=== PATIENT | female | born 1990 | race Hispanic/Latino ===

== ENCOUNTER 2018-10-05 10:59 | Emergency (ER) | payer SELFPAY ==
--- NOTE | 2018-10-05 11:18 | EDPHYS ---
Physician Documentation [facility] Name: Anna Banks Age: 28 yrs Sex: Female : 1990 Arrival Date: 10/05/2018 Time: 11:02 Bed 12 Private MD: ED Physician Avis Lemus HPI: 10/05 11:15 This 28 yrs old Female presents to ER via Ambulatory with complaints of Fever, ma2 Cough, Headache. 11:15 Onset: The symptoms/episode began/occurred gradually, 2 day(s) ago. Associated signs ma2 and symptoms: Pertinent positives: cough, Pertinent negatives: abdominal pain, cough. Severity of symptoms: At their worst the symptoms were mild in the emergency department the symptoms have improved. The patient has not experienced similar symptoms in the past. 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 - Social history:: Patient/guardian denies using Smoking status: . - Family history:: not pertinent. - Ebola Screening: : Patient negative for fever greater than or equal to 101.5 degrees Fahrenheit, and additional compatible Ebola Virus Disease symptoms Patient denies exposure to infectious person Patient denies travel to an Ebola-affected area in the 21 days before illness onset. ROS: 11:15 Constitutional: Negative for fever, chills, and weight loss, Cardiovascular: Negative ma2 for chest pain, palpitations, and edema, Respiratory: Negative for shortness of breath, cough, wheezing, and pleuritic chest pain. 11:15 ENT: Positive for nasal discharge, sore throat, Negative for hearing loss. 11:15 All other systems are negative. Exam: 11:15 Constitutional: This is a well developed, well nourished patient who is awake, alert, ma2 and in no acute distress. Chest/axilla: Normal chest wall appearance and motion. Nontender with no deformity. No lesions are appreciated. Cardiovascular: Regular rate and rhythm with a normal S1 and S2. No gallops, murmurs, or rubs. Normal PMI, no JVD. No pulse deficits. Respiratory: Lungs have equal breath sounds bilaterally, clear to auscultation and percussion. No rales, rhonchi or wheezes noted. No increased work of breathing, no retractions or nasal flaring. Abdomen/GI: Soft, non-tender, with normal bowel sounds. No distension or tympany. No guarding or rebound. No evidence of tenderness throughout. 11:15 MS/ Extremity: Pulses equal, no cyanosis. Neurovascular intact. Full, normal range of motion. Neuro: Awake and alert, GCS 15, oriented to person, place, time, and situation. Cranial nerves II-XII grossly intact. Motor strength 5/5 in all extremities. Sensory grossly intact. Cerebellar exam normal. Normal gait. 11:15 ENT: Posterior pharynx: Airway: normal, Tonsils: bilaterally enlarged, no exudate, no ulcerations, exudate, is not appreciated, peritonsillar mass, is not appreciated, pooling of secretions, is not appreciated. Vital Signs: 11:08 BP 130 / 74; Pulse 108; Resp 18; Temp 100.8(O); Pulse Ox 96% on R/A; Weight 97.98 kg; hj Height 5 ft. 4 in. (162.56 cm); Pain 5/10; 11:08 Body Mass Index 37.08 (97.98 kg, 162.56 cm) MDM: 11:12 Patient medically screened. [facility] 11:15 Differential diagnosis: viral Infection, URI, bronchitis. Data reviewed: vital signs, ca2 nurses notes. Counseling: I had a detailed discussion with the patient and/or guardian regarding: the historical points, exam findings, and any diagnostic results supporting the discharge/admit diagnosis, the presence of at least one elevated blood pressure reading (>120/80) during this emergency department visit. Response to treatment: the patient's symptoms have markedly improved after treatment. Administered Medications: 11:18 Drug: TORadol 60 mg Route: IM; Site: left deltoid; 11:39 Follow up: Response: No adverse reaction; Pain is decreased Disposition: 10/05/18 11:18 Discharged to Home. Impression: Acute laryngopharyngitis. - Condition is Stable. - Discharge Instructions: Pharyngitis. - Prescriptions for Tylenol- Codeine #3 300-30 mg Oral Tablet - take 2 tablet by ORAL route every 6 hours As needed; 30 tablet. Zithromax Z- Peter 250 mg Oral Tablet - take 1 tablet by ORAL route as directed for 5 days Day 1 - take two (2) tablets one time. Day 2, 3, 4 , 5 take one (1) tablet once daily.; 6 tablet. - Medication Reconciliation Form, Thank You Letter, Antibiotic Education, Prescription Opioid Use form. - Follow up: Private Physician; When: Tomorrow; Reason: If symptoms return. Signatures: Luca Badillo RN RN hj Alzahri, Mohammad, MD MD ma2 Corrections: (The following items were deleted from the chart) 11:41 11:18 10/05/2018 11:18 Discharged to Home. Impression: Acute laryngopharyngitis. hj Condition is Stable. Forms are Medication Reconciliation Form, Thank You Letter, Antibiotic Education, Prescription Opioid Use. Follow up: Private Physician; When: Tomorrow; Reason: If symptoms return. ma2
--- NOTE | 2018-10-05 11:18 | ER ---
Nurse's Notes [facility] Name: Anna Banks Age: 28 yrs Sex: Female : 1990 Arrival Date: 10/05/2018 Time: 11:02 Bed 12 Private MD: Diagnosis: Acute laryngopharyngitis Presentation: 10/05 11:06 Presenting complaint: Patient states: last night, i started coughing a lot, sore throat hj and fever, took TheraFlu but not helping with the cough but it helped with my throat;. Transition of care: patient was not received from another setting of care. Onset of symptoms was October 05, 2018. Risk Assessment: Do you want to hurt yourself or someone else? Patient reports no desire to harm self or others. Initial Sepsis Screen: Does the patient meet any 2 criteria? No. Patient's initial sepsis screen is negative. Does the patient have a suspected source of infection? No. Patient's initial sepsis screen is negative. Care prior to arrival: None. 11:06 Method Of Arrival: Ambulatory 11:06 Acuity: SENTHIL 4 Triage Assessment: 11:40 Headache History: Denies prior headaches. General: Appears in no apparent distress. hj uncomfortable, Behavior is calm, cooperative, appropriate for age. Pain: Complains of pain in thraot. Neuro: Level of Consciousness is awake, alert, obeys commands. 11:40 Pain: Pain Also complains of no other associated symptoms. 11:40 Pain: Pain began 1 day ago. 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 - Social history:: Patient/guardian denies using Smoking status: . - Family history:: not pertinent. - Ebola Screening: : Patient negative for fever greater than or equal to 101.5 degrees Fahrenheit, and additional compatible Ebola Virus Disease symptoms Patient denies exposure to infectious person Patient denies travel to an Ebola-affected area in the 21 days before illness onset. Screenin:40 Abuse screen: Denies threats or abuse. Denies injuries from another. Nutritional hj screening: No deficits noted. Tuberculosis screening: No symptoms or risk factors identified. Fall Risk None identified. Vital Signs: 11:08 BP 130 / 74; Pulse 108; Resp 18; Temp 100.8(O); Pulse Ox 96% on R/A; Weight 97.98 kg; hj Height 5 ft. 4 in. (162.56 cm); Pain 5/10; 11:08 Body Mass Index 37.08 (97.98 kg, 162.56 cm) hj ED Course: 11:02 Patient arrived in ED. rg4 11:07 Triage completed. hj 11:08 Arm band placed on left wrist. hj 11:12 Avis Lemus MD is Attending Physician. ma2 11:39 Luca Badillo RN is Primary Nurse. hj 11:41 Patient has correct armband on for positive identification. Bed in low position. Call hj light in reach. Side rails up X 1. 11:41 No provider procedures requiring assistance completed. Patient did not have IV access hj during this emergency room visit. Administered Medications: 11:18 Drug: TORadol 60 mg Route: IM; Site: left deltoid; hj 11:39 Follow up: Response: No adverse reaction; Pain is decreased hj Outcome: 11:18 Discharge ordered by . ma2 11:41 Discharged to home ambulatory. hj 11:41 Condition: stable 11:41 Discharge instructions given to patient, Instructed on discharge instructions, follow up and referral plans. medication usage, Demonstrated understanding of instructions, follow-up care, medications, Prescriptions given X 2. 11:41 Patient left the ED. hj Signatures: Luca Badillo RN RN hj Garcia, Rubi 4 Avis Lemus MD MD wyZhanna Corrections: (The following items were deleted from the chart) 11:11 11:08 Pulse 108bpm; Resp 18bpm; Pulse Ox 96% RA; Temp 100.8F Oral; 97.98 kg; Height 5 hj ft. 4 in.; BMI: 37.0; Pain 5/10; hj
[2018-10-05] MEDS ORDERED: KETOROLAC 30 MG/ML INJ ONE (11:47)
[2018-10-05 11:58] VITALS: BP 130/74; TEMP 100.8; O2SAT 96
== END 2018-10-05 11:41 | disposition home or self-care (01) ==
LOC: ER 10:59
DX: J06.0 Acute laryngopharyngitis (principal)
CPT/HCPCS: 96372; 99283

== ENCOUNTER 2018-10-06 18:24 | Emergency (ER) | payer SELFPAY ==
[2018-10-06] MEDS ORDERED: ALBUTEROL 2.5 MG/3 ML NEB SOL ONE (19:06)
--- NOTE | 2018-10-06 19:42 | EDPHYS ---
Physician Documentation [facility] Name: Anna Banks Age: 28 yrs Sex: Female : 1990 Arrival Date: 10/06/2018 Time: 18:26 Bed 30 Private MD: ED Physician Sergio Navarro HPI: 10/06 19:22 This 28 yrs old Female presents to ER via Ambulatory with complaints of Cough, snw Headache, Urinary Problem. 19:22 The patient or guardian reports cough, described as moderate, with no sputum. Onset: snw The symptoms/episode began/occurred seen in ED yesterday and given Rx for Z-max. Severity of symptoms: At their worst the symptoms were moderate. Associated signs and symptoms: Pertinent positives: cough, headache, and frequency. It is unknown whether or not the patient has had similar symptoms in the past. The patient has been recently seen by a physician: The patient has been recently seen at the [facility] Emergency Department, yesterday, for similar complaints. 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 - Social history:: Smoking status: Patient/guardian denies using tobacco. - Ebola Screening: : No symptoms or risks identified at this time. ROS: 19:21 Constitutional: Negative for fever, chills, and weight loss, Eyes: Negative for injury, snw pain, redness, and discharge, ENT: Negative for injury, pain, and discharge, Neck: Negative for injury, pain, and swelling, Cardiovascular: Negative for chest pain, palpitations, and edema. 19:21 Abdomen/GI: Negative for abdominal pain, nausea, vomiting, diarrhea, and constipation, Back: Negative for injury and pain, MS/Extremity: Negative for injury and deformity, Skin: Negative for injury, rash, and discoloration, Neuro: Negative for headache, weakness, numbness, tingling, and seizure. 19:21 Respiratory: Positive for cough, with no reported sputum, wheezing. 19:21 : Positive for urinary frequency, small amounts. Exam: 18:49 Constitutional: This is a well developed, well nourished patient who is awake, alert, snw and in no acute distress. Head/Face: Normocephalic, atraumatic. Eyes: Pupils equal round and reactive to light, extra-ocular motions intact. Lids and lashes normal. Conjunctiva and sclera are non-icteric and not injected. Cornea within normal limits. Periorbital areas with no swelling, redness, or edema. ENT: Nares patent. No nasal discharge, no septal abnormalities noted. Tympanic membranes are normal and external auditory canals are clear. Oropharynx with no redness, swelling, or masses, exudates, or evidence of obstruction, uvula midline. Mucous membranes moist. Neck: Trachea midline, no thyromegaly or masses palpated, and no cervical lymphadenopathy. Supple, full range of motion without nuchal rigidity, or vertebral point tenderness. No Meningismus. Chest/axilla: Normal chest wall appearance and motion. Nontender with no deformity. No lesions are appreciated. Cardiovascular: Regular rate and rhythm with a normal S1 and S2. No gallops, murmurs, or rubs. Normal PMI, no JVD. No pulse deficits. Abdomen/GI: Soft, non-tender, with normal bowel sounds. No distension or tympany. No guarding or rebound. No evidence of tenderness throughout. Back: No spinal tenderness. No costovertebral tenderness. Full range of motion. Skin: Warm, dry with normal turgor. Normal color with no rashes, no lesions, and no evidence of cellulitis. MS/ Extremity: Pulses equal, no cyanosis. Neurovascular intact. Full, normal range of motion. Neuro: Awake and alert, GCS 15, oriented to person, place, time, and situation. Cranial nerves II-XII grossly intact. Motor strength 5/5 in all extremities. Sensory grossly intact. Cerebellar exam normal. Normal gait. Psych: Awake, alert, with orientation to person, place and time. Behavior, mood, and affect are within normal limits. 18:49 Respiratory: the patient does not display signs of respiratory distress, Respirations: normal, Breath sounds: wheezing: expiratory bronchitic cough. Vital Signs: 18:33 BP 135 / 91; Pulse 84; Resp 16; Temp 97.6; Pulse Ox 98% on R/A; Weight 117.93 kg; la1 Height 5 ft. 4 in. (162.56 cm); 19:54 BP 129 / 89; Pulse 80; Resp 18; Pulse Ox 100% on R/A; Pain 0/10; mg2 18:33 Body Mass Index 44.63 (117.93 kg, 162.56 cm) la1 MDM: 18:46 Patient medically screened. snw 19:42 Data reviewed: vital signs, nurses notes. Data interpreted: Pulse oximetry: on room air snw is 98 %. Interpretation: normal. Counseling: I had a detailed discussion with the patient and/or guardian regarding: the historical points, exam findings, and any diagnostic results supporting the discharge/admit diagnosis, lab results, the need for outpatient follow up, to return to the emergency department if symptoms worsen or persist or if there are any questions or concerns that arise at home. Response to treatment: the patient's symptoms have markedly improved after treatment. Special discussion: Based on the history and exam findings, there is no indication for further emergent testing or inpatient evaluation. I discussed with the patient/guardian the need to see the primary care provider for further evaluation of the symptoms. 10/06 18:47 Order name: Urine Dipstick--Ancillary (enter results); Complete Time: 19:52 ar5 10/06 18:47 Order name: Urine --Ancillary (enter results); Complete Time: 19:52 ar5 Administered Medications: 19:00 Drug: Albuterol 2.5 mg Route: Inhalation; mg2 19:23 Follow up: Response: No adverse reaction; Marked relief of symptoms mg2 Disposition: 10/07 07:00 Co-signature as Attending Physician, Sergio Navarro MD. rn Disposition: 10/06/18 19:42 Discharged to Home. Impression: Bronchitis, not specified as acute or chronic, Dysuria. - Condition is Stable. - Discharge Instructions: Acute Bronchitis, Adult, Dysuria, Hypertension, How to Use an Inhaler, How to Take a Sitz Bath, Cool Mist Vaporizer, Cough, Adult. - Prescriptions for Pyridium 200 mg Oral Tablet - take 1 tablet by ORAL route every 8 hours for 3 days; 6 tablet. Albuterol Sulfate 90 mcg/actuation - inhale 1-2 puff by INHALATION route every 4-6 hours; 1 Inhaler. - Medication Reconciliation Form, Thank You Letter, Antibiotic Education, Prescription Opioid Use, Work release form form. - Follow up: Private Physician; When: 2 - 3 days; Reason: Recheck today's complaints, Continuance of care, Re-evaluation by your physician. Follow up: Emergency Department; When: As needed; Reason: Worsening of condition. Signatures: Dispatcher [employer] EDDora Mcclure, MAIDA-C RESIDENTIAL PROGRAM DIRECTOR-Csnw Sergio Navarro MD MD rn Attema, Lee, RN RN la1 Brandon Espino RN RN mg2 Corrections: (The following items were deleted from the chart) 10/06 19:55 19:42 10/06/2018 19:42 Discharged to Home. Impression: Bronchitis, not specified as mg2 acute or chronic; Dysuria. Condition is Stable. Discharge Instructions: Dysuria, How to Take a Sitz Bath, Cough, Adult. Prescriptions for Pyridium 200 mg Oral Tablet - take 1 tablet by ORAL route every 8 hours for 3 days; 6 tablet, Albuterol Sulfate 90 mcg/actuation - inhale 1-2 puff by INHALATION route every 4-6 hours; 1 Inhaler. and Forms are Medication Reconciliation Form, Thank You Letter, Antibiotic Education, Prescription Opioid Use. Follow up: Private Physician; When: 2 - 3 days; Reason: Recheck today's complaints, Continuance of care, Re-evaluation by your physician. Follow up: Emergency Department; When: As needed; Reason: Worsening of condition. snw
--- NOTE | 2018-10-06 19:42 | ER ---
Nurse's Notes [facility] Name: Anna Banks Age: 28 yrs Sex: Female : 1990 Arrival Date: 10/06/2018 Time: 18:26 Bed 30 Private MD: Diagnosis: Bronchitis, not specified as acute or chronic;Dysuria Presentation: 10/06 18:31 Presenting complaint: Patient states: I was seen here yesterday and the fever went away la1 but I am having vaginal irritation and urinary frequency. Transition of care: patient was not received from another setting of care. Onset of symptoms was October 06, 2018. Risk Assessment: Do you want to hurt yourself or someone else? Patient reports no desire to harm self or others. Initial Sepsis Screen: Does the patient meet any 2 criteria? No. Patient's initial sepsis screen is negative. Does the patient have a suspected source of infection? No. Patient's initial sepsis screen is negative. Care prior to arrival: None. 18:31 Method Of Arrival: Ambulatory la1 18:31 Acuity: SENTHIL 4 la1 Triage Assessment: 18:51 Headache History: The patient has had previous headaches and this one is similar to mg2 previous episodes. General: Appears in no apparent distress. comfortable. General: Behavior is calm, cooperative. Pain: Also complains of no other associated symptoms. 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 - Social history:: Smoking status: Patient/guardian denies using tobacco. - Ebola Screening: : No symptoms or risks identified at this time. Screenin:51 Abuse screen: Denies threats or abuse. Denies injuries from another. Nutritional mg2 screening: No deficits noted. Tuberculosis screening: No symptoms or risk factors identified. Fall Risk None identified. Assessment: 18:48 General: Appears in no apparent distress. comfortable, Behavior is calm, cooperative. mg2 Pain: Complains of pain in head Pain does not radiate. Pain currently is 2 out of 10 on a pain scale. Quality of pain is described as aching, Pain began gradually, 1 day ago. Neuro: Level of Consciousness is awake, alert, obeys commands, Oriented to person, place, time, situation, Reports headache. Cardiovascular: Capillary refill < 3 seconds Patient's skin is warm and dry. Respiratory: Reports cough that is Airway is patent Respiratory effort is even, unlabored, Respiratory pattern is regular, symmetrical, Breath sounds are clear in mediastinum, right upper lobe, left upper lobe, right middle lobe, left lower lobe, right lower lobe, left posterior upper lobe, right posterior upper lobe, left posterior lower lobe, right posterior middle lobe and right posterior lower lobe. GI: No signs and/or symptoms were reported involving the gastrointestinal system. GI:. : Urine is clear, Reports burning with urination. EENT: No signs and/or symptoms were reported regarding the EENT system. Derm: Skin is intact, is healthy with good turgor, Skin is pink, warm \T\ dry. normal. Musculoskeletal: Circulation, motion, and sensation intact. Capillary refill < 3 seconds. 19:54 Reassessment: Patient appears in no apparent distress at this time. Patient states mg2 feeling better. Vital Signs: 18:33 BP 135 / 91; Pulse 84; Resp 16; Temp 97.6; Pulse Ox 98% on R/A; Weight 117.93 kg; la1 Height 5 ft. 4 in. (162.56 cm); 19:54 BP 129 / 89; Pulse 80; Resp 18; Pulse Ox 100% on R/A; Pain 0/10; mg2 18:33 Body Mass Index 44.63 (117.93 kg, 162.56 cm) la1 ED Course: 18:26 Patient arrived in ED. as 18:32 Triage completed. la1 18:33 Arm band placed on left wrist. la1 18:34 Brandon Espino, ANURADHA is Primary Nurse. mg2 18:43 Dora Ferrell FNP-C is [facility]. snw 18:43 Sergio Navarro MD is Attending Physician. snw 18:51 No provider procedures requiring assistance completed. Patient did not have IV access mg2 during this emergency room visit. 18:52 Patient has correct armband on for positive identification. mg2 Administered Medications: 19:00 Drug: Albuterol 2.5 mg Route: Inhalation; mg2 19:23 Follow up: Response: No adverse reaction; Marked relief of symptoms mg2 Outcome: 19:42 Discharge ordered by MD. snw 19:54 Discharged to home ambulatory. mg2 19:54 Condition: stable 19:54 Discharge instructions given to patient, Instructed on discharge instructions, follow up and referral plans. medication usage, Demonstrated understanding of instructions, follow-up care, medications, Prescriptions given X 2. 19:55 Patient left the ED. mg2 Signatures: Dora Ferrell, SALES ATTENDANT BUILDING MATERIALS-C SALES ATTENDANT BUILDING MATERIALS-Csnw Bhavani Hein Lee, RN RN la1 Brandon Espino RN RN mg2 Corrections: (The following items were deleted from the chart) 19:01 18:48 Respiratory: Airway is patent Respiratory effort is even, unlabored, Respiratory mg2 pattern is regular, symmetrical, mg2
[2018-10-06 19:51] LABS: Urine Blood NEGATIVE (NEG); Urine Glucose NEGATIVE (NEG); Urine Protein 1+ (NEG); Urine Specific Gravity >1.030 (1.005-1.030); Urine pH 5.5 (5.0-7.0)
[2018-10-06 19:58] VITALS: TEMP 97.6
[2018-10-06 20:00] VITALS: BP 129/89; O2SAT 100
== END 2018-10-06 19:55 | disposition home or self-care (01) ==
LOC: ER 18:24
DX: J40 Bronchitis, not specified as acute or chronic (principal); R30.0 Dysuria; I10 Essential (primary) hypertension
CPT/HCPCS: 81003; 81025; 99284

== ENCOUNTER 2019-12-14 18:42 | Emergency (ER) | payer SELFPAY ==
--- NOTE | 2019-12-14 20:12 | ER ---
Nurse's Notes [facility] Name: Anna Banks Age: 29 yrs Sex: Female : 1990 Arrival Date: 12/14/2019 Time: 18:48 Bed DIS2 Private MD: Diagnosis: Nausea;Malaise and fatigue;Anosmia Presentation: 12/13 20:48 Chief complaint: Patient states: No taste and no smell, headache and nausea for a few days. Coronavirus screen: Surgical mask placed on patient. Patient moved to private room, placed in contact and droplet isolation with eye protection until further assessment. Patient denies a cough. Patient denies shortness of breath or difficulty breathing. Patient denies measured and/or subjective temperature greater than 100.4F prior to today's visit. Patient denies travel on a cruise ship or to a country the [facility] currently lists as an affected area. Patient denies contact with known and/or suspected case of COVID-19. Ebola Screen: No symptoms or risks identified at this time. Initial Sepsis Screen: Does the patient meet any 2 criteria? No. Patient's initial sepsis screen is negative. Does the patient have a suspected source of infection? No. Patient's initial sepsis screen is negative. Risk Assessment: Do you want to hurt yourself or someone else? Patient reports no desire to harm self or others. Onset of symptoms is unknown. 20:48 Method Of Arrival: Ambulatory 20:48 Acuity: SENTHIL 4 Historical: - Allergies: 20:49 No Known Allergies; - Home Meds: 20:49 None [Active]; - PMHx: 20:49 Hypertension; - PSHx: 20:49 Tubal ligation; - Immunization history:: Adult Immunizations unknown, Flu vaccine is not up to date. - Social history:: Smoking status: Patient denies any tobacco usage or history of. Patient uses alcohol, occasionally. Screenin:50 Abuse screen: Denies threats or abuse. Nutritional screening: No deficits noted. Tuberculosis screening: No symptoms or risk factors identified. Fall Risk None identified. Assessment: 19:45 General: Appears in no apparent distress. Behavior is calm, cooperative, appropriate for age. Pain: Denies pain. Neuro: Level of Consciousness is awake, alert, obeys commands, Oriented to person, place, time, situation, Appropriate for age Reports headache weakness. Neuro: Reports. Cardiovascular: Capillary refill < 3 seconds Patient's skin is warm and dry. Respiratory: Airway is patent Respiratory effort is even, unlabored. GI: Reports nausea. EENT: Reports NO taste and no smell. Derm: Skin is intact, is healthy with good turgor. Vital Signs: 20:48 Weight 113.4 kg; Height 5 ft. 4 in. (162.56 cm); 20:48 Body Mass Index 42.91 (113.40 kg, 162.56 cm) ED Course: 18:48 Patient arrived in ED. mr 19:08 Anna Phelps FNP-C is [facility]. kb 19:08 Sergio Navarro MD is Attending Physician. kb 19:26 Patient's name was called from ER lobby. No response. lp1 19:40 [facility]hel[facility]C is [facility]. kb 19:40 Sergio Navarro MD is Attending Physician. kb 20:37 Airam Solomon, RN is Primary Nurse. 20:49 Triage completed. 20:50 Patient has correct armband on for positive identification. Bed in low position. Call light in reach. 20:50 No provider procedures requiring assistance completed. Patient did not have IV access during this emergency room visit. 20:51 Patient notified of wait time. Administered Medications: No medications were administered Outcome: 20:11 Discharge ordered by MD. kb 20:50 Discharged to home ambulatory. ah 20:50 Condition: good 20:50 Discharge instructions given to patient, Instructed on discharge instructions, follow up and referral plans. Demonstrated understanding of instructions, follow-up care. 20:58 Prescriptions given X 1. 20:58 Patient left the ED. Addendum: 12/18/2019 17:42 Addendum: COVID-19 Result: Positive result giiven to ED physician to notify pt. h b Physician: Naseem Meyer MD Physician was able to contact pt and pt was notified of positive COVID-19 swab result. Physician answered pt questions. Signatures: Anna Phelps FNP-C FNP-Cassandra Marisol Tobias mr Jie Maya RN RN lp1 Kassandra Eaton RN RN Airam Solomon RN RN Corrections: (The following items were deleted from the chart) 18:30 17:42 Addendum: COVID-19 Result: Positive result giiven to ED physician to notify pt. lashawn Physician: Naseem hardin
--- NOTE | 2019-12-14 20:12 | EDPHYS ---
Physician Documentation [facility] Name: Anna Banks Age: 29 yrs Sex: Female : 1990 Arrival Date: 12/14/2019 Time: 18:48 Bed DIS2 Private MD: ED Physician Sergio Navarro HPI: 12/13 19:53 This 29 yrs old Female presents to ER via Unassigned with complaints of Nausea.kb 19:53 The patient presents to the emergency department with nausea. Onset: The kb symptoms/episode began/occurred last night. Possible causes: unknown. The symptoms are aggravated by nothing. The symptoms are alleviated by nothing. Associated signs and symptoms: Pertinent positives: nausea. Severity of symptoms: At their worst the symptoms were mild in the emergency department the symptoms are unchanged. The patient has not experienced similar symptoms in the past. The patient has not recently seen a physician. Pt reports nausea, no smell or taste, malaise, weakness since last night. Historical: - Allergies: 20:49 No Known Allergies; - Home Meds: 20:49 None [Active]; - PMHx: 20:49 Hypertension; - PSHx: 20:49 Tubal ligation; - Immunization history:: Adult Immunizations unknown, Flu vaccine is not up to date. - Social history:: Smoking status: Patient denies any tobacco usage or history of. Patient uses alcohol, occasionally. ROS: 19:51 Cardiovascular: Negative for chest pain, palpitations, and edema, Respiratory: Negative kb for shortness of breath, cough, wheezing, and pleuritic chest pain, Back: Negative for injury and pain, MS/Extremity: Negative for injury and deformity, Skin: Negative for injury, rash, and discoloration, Neuro: Negative for headache, weakness, numbness, tingling, and seizure. 19:51 Constitutional: Positive for malaise. 19:51 Abdomen/GI: Positive for nausea, no smell/taste. Exam: 19:53 Constitutional: This is a well developed, well nourished patient who is awake, alert, kb and in no acute distress. Head/Face: Normocephalic, atraumatic. Chest/axilla: Normal chest wall appearance and motion. Nontender with no deformity. No lesions are appreciated. Cardiovascular: Regular rate and rhythm with a normal S1 and S2. No gallops, murmurs, or rubs. Normal PMI, no JVD. No pulse deficits. Respiratory: Lungs have equal breath sounds bilaterally, clear to auscultation and percussion. No rales, rhonchi or wheezes noted. No increased work of breathing, no retractions or nasal flaring. Abdomen/GI: Soft, non-tender, with normal bowel sounds. No distension or tympany. No guarding or rebound. No evidence of tenderness throughout. Skin: Warm, dry with normal turgor. Normal color with no rashes, no lesions, and no evidence of cellulitis. MS/ Extremity: Pulses equal, no cyanosis. Neurovascular intact. Full, normal range of motion. Neuro: Awake and alert, GCS 15, oriented to person, place, time, and situation. Cranial nerves II-XII grossly intact. Motor strength 5/5 in all extremities. Sensory grossly intact. Cerebellar exam normal. Normal gait. Vital Signs: 20:48 Weight 113.4 kg; Height 5 ft. 4 in. (162.56 cm); ah 20:48 Body Mass Index 42.91 (113.40 kg, 162.56 cm) MDM: 19:40 Patient medically screened. kb 19:50 Data reviewed: vital signs, nurses notes. Data interpreted: Pulse oximetry: on room air kb is 100 %. Interpretation: normal. Counseling: I had a detailed discussion with the patient and/or guardian regarding: the historical points, exam findings, and any diagnostic results supporting the discharge/admit diagnosis, the need for outpatient follow up, a family practitioner, to return to the emergency department if symptoms worsen or persist or if there are any questions or concerns that arise at home. 12/13 19:41 Order name: [id number] Administered Medications: No medications were administered Disposition: 21:05 Co-signature as Attending Physician, Sergio Navarro MD. rn Disposition: 12/14/19 20:11 Discharged to Home. Impression: Nausea, Malaise and fatigue, Anosmia. - Condition is Stable. - Discharge Instructions: Weakness, [id number], Nausea, Adult, [id number]. - Prescriptions for Zofran 4 mg Oral Tablet - take 1 tablet by ORAL route every 6 hours As needed; 20 tablet. - Medication Reconciliation Form, Thank You Letter, Antibiotic Education, Prescription Opioid Use, Work release form form. - Follow up: Private Physician; When: 2 - 3 days; Reason: Recheck today's complaints, Continuance of care, Re-evaluation by your physician. Follow up: Emergency Department; When: As needed; Reason: Worsening of condition. Signatures: Dispatcher [employer] EDMS Anna Phelps, CAR BODY MECHANIC-C CAR BODY MECHANIC-Ckb eSrgio Navarro MD MD rn Harris, Amy, RN RN ah Corrections: (The following items were deleted from the chart) 20:12 20:11 12/14/2019 20:11 Discharged to Home. Impression: Nausea; Malaise and fatigue. kb Condition is Stable. Forms are Medication Reconciliation Form, Thank You Letter, Antibiotic Education, Prescription Opioid Use. Follow up: Private Physician; When: 2 - 3 days; Reason: Recheck today's complaints, Continuance of care, Re-evaluation by your physician. Follow up: Emergency Department; When: As needed; Reason: Worsening of condition. kb 20:58 20:12 12/14/2019 20:11 Discharged to Home. Impression: Nausea; Malaise and fatigue; Anosmia. Condition is Stable. Forms are Medication Reconciliation Form, Thank You Letter, Antibiotic Education, Prescription Opioid Use. Follow up: Private Physician; When: 2 - 3 days; Reason: Recheck today's complaints, Continuance of care, Re-evaluation by your physician. Follow up: Emergency Department; When: As needed; Reason: Worsening of condition. kb
== END 2019-12-14 20:58 | disposition home or self-care (01) ==
LOC: ER 18:42
DX: U07.1 COVID-19 (principal); R43.0 Anosmia; R53.81 Other malaise; R53.83 Other fatigue; I10 Essential (primary) hypertension
CPT/HCPCS: 99281; U0001

== ENCOUNTER 2020-01-12 18:30 | Emergency (ER) | payer SELFPAY ==
[2020-01-12 19:57] LABS: Urine Blood NEGATIVE (NEG); Urine Glucose NEGATIVE (NEG); Urine Protein NEGATIVE (NEG); Urine Specific Gravity >1.030 (1.005-1.030); Urine pH 5.5 (5.0-7.0)
[2020-01-12] MEDS ORDERED: KETOROLAC 30 MG/ML INJ ONE (20:45)
--- NOTE | 2020-01-12 22:18 | EDPHYS ---
Physician Documentation [facility] Name: Anna Banks Age: 29 yrs Sex: Female : 1990 Arrival Date: 01/12/2020 Time: 18:36 Bed 25 Private MD: ED Physician Eric Vanessa HPI: 01/11 19:40 This 29 yrs old Female presents to ER via Ambulatory with complaints of Leg cp Pain. 19:40 The patient presents with pain. The complaints affect the left calf. Onset: The cp symptoms/episode began/occurred 3 month(s) ago. 19:40 Associated signs and symptoms: Pertinent negatives fever, numbness, weakness, bowel or cp bladder incontinence, saddle anesthesia. 19:40 Modifying factors: the symptoms are aggravated by weight bearing. Treatment prior to cp arrival includes: no previous treatment. 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 - Social history:: Smoking status: Patient denies any tobacco usage or history of. ROS: 19:45 Back: Positive for pain at rest, pain with movement, of the left low back, Negative for cp injury or acute deformity. 19:45 Constitutional: Negative for body aches, chills, fever. cp 19:45 Neck: Negative for pain with movement, pain at rest, stiffness. 19:45 Respiratory: Negative for cough, shortness of breath, wheezing. 19:45 Abdomen/GI: Negative for abdominal pain, diarrhea, constipation, bowel incontinence. 19:45 : Negative for urinary symptoms, difficulty urinating, bladder incontinence. 19:45 MS/extremity: Positive for pain, of the left calf, Negative for injury or acute deformity, decreased range of motion, paresthesias. 19:45 Skin: Negative for rash. 19:45 Neuro: Negative for altered mental status, numbness, tingling, weakness. 19:45 All other systems are negative. Exam: 19:52 Constitutional: The patient appears in no acute distress, alert, awake, non-toxic, well cp developed, well nourished, obese. 19:52 Head/Face: Normocephalic, atraumatic. cp 19:52 Chest/axilla: Inspection: normal. 19:52 Cardiovascular: Rate: normal, Rhythm: regular. 19:52 Respiratory: the patient does not display signs of respiratory distress, Respirations: normal, no use of accessory muscles, labored breathing, is not present. 19:52 Abdomen/GI: Exam negative for discomfort, distension, guarding, Inspection: abdomen appears normal. 19:52 Back: pain, that is mild, of the left low back, CVA tenderness, is absent, Straight leg raises: of both lower extremities does not illicit pain. 19:52 Musculoskeletal/extremity: Extremities: grossly normal except: noted in the left calf: pain, tenderness, ROM: full active range of motion, in the left leg, Perfusion: the extremity is normally perfused throughout, the left leg Sensation intact. DVT Exam: no swelling, negative Homans' sign noted on exam, no erythema, no increased warmth, pain, that is mild, of the left leg, tenderness, that is mild, of the left leg. 19:52 Neuro: Motor: moves all fours, strength is normal, Sensation: no obvious gross deficits, Gait: is steady, Deep tendon reflexes are 2+ (normal) in the right patellar, right Achilles, left patellar and left Achilles. Vital Signs: 18:54 Pulse 60; Resp 16; Temp 98.8(O); Pulse Ox 99% ; Weight 113.4 kg; Height 5 ft. 3 in. ss (160.02 cm); Pain 6/10; 19:25 BP 145 / 86; Pulse 60; Resp 16; Pulse Ox 99% ; rr5 20:30 BP 161 / 89; Pulse 68; Resp 19; Pulse Ox 100% ; rr5 21:18 BP 155 / 70; Pulse 61; Resp 17; Pulse Ox 98% ; rr5 22:26 BP 143 / 86; Pulse 60; Resp 16; Pulse Ox 99% ; Pain 3/10; rr5 18:54 Body Mass Index 44.29 (113.40 kg, 160.02 cm) ss MDM: 19:21 Patient medically screened. cp 20:00 Differential diagnosis: DVT, sciatica, radiculopathy, muscle strain. cp 22:15 Data reviewed: vital signs, nurses notes, radiologic studies, ultrasound. cp 22:16 Counseling: I had a detailed discussion with the patient and/or guardian regarding: the cp historical points, exam findings, and any diagnostic results supporting the discharge/admit diagnosis, radiology results, the need for outpatient follow up, a family practitioner, to return to the emergency department if symptoms worsen or persist or if there are any questions or concerns that arise at home. 22:16 Response to treatment: the patient's symptoms have markedly improved after treatment, cp and as a result, I will discharge patient. ED course: VSS. Will discharge to home for continued monitoring. 01/11 19:42 Order name: Urine --Ancillary (enter results); Complete Time: 20:10 tt3 01/11 20:10 Interpretation: Normal except: USPGR >1.030. 01/11 19:42 Order name: Urine Dipstick--Ancillary (enter results); Complete Time: 20:10 tt3 01/11 20:10 Interpretation: Normal except: UESTR TRACE. 01/11 19:32 Order name: US Extremity Venous Unilateral Ltd cp 01/11 19:32 Order name: Urine Dipstick-Ancillary (obtain specimen); Complete Time: 20:12 cp 01/11 19:32 Order name: Urine Test (obtain specimen); Complete Time: 20:12 cp Administered Medications: 20:39 Drug: TORadol 30 mg Route: IM; Site: right gluteus; rr5 21:40 Follow up: Response: No adverse reaction rr5 Disposition: 22:30 Chart complete. 01/12 04:27 Co-signature as Attending Physician, Eric Vanessa MD I agree with the assessment and tw4 plan of care. Disposition: 01/12/20 22:17 Discharged to Home. Impression: Sciatica, left side. - Condition is Stable. - Discharge Instructions: Sciatica, Back Exercises. - Prescriptions for Cyclobenzaprine 10 mg Oral Tablet - take 1 tablet by ORAL route every 8 hours As needed no driving while taking medication; 20 tablet. Tramadol 50 mg Oral Tablet - take 1 tablet by ORAL route every 8 hours as needed; 12 tablet. Medrol (Peter) 4 mg Oral Tablets, Dose Pack - take 1 tablet by ORAL route as directed - follow package instructions; 1 packet. - Medication Reconciliation Form, Thank You Letter, Antibiotic Education, Prescription Opioid Use form. - Follow up: Private Physician; When: 2 - 3 days; Reason: Recheck today's complaints. - Problem is new. - Symptoms have improved. Signatures: Dispatcher [employer] EDMS Mechelle Matias, RN RN ss Yash Grimaldo PA PA cp Wadley, Terrence, MD MD tw4 Marko Vogel RN RN rr5 Corrections: (The following items were deleted from the chart) 01/11 22:37 22:17 01/12/2020 22:17 Discharged to Home. Impression: Sciatica, left side. Condition rr5 is Stable. Forms are Medication Reconciliation Form, Thank You Letter, Antibiotic Education, Prescription Opioid Use. Follow up: Private Physician; When: 2 - 3 days; Reason: Recheck today's complaints. Problem is new. Symptoms have improved. cp
--- NOTE | 2020-01-12 22:18 | ER ---
Nurse's Notes [facility] Name: Anna Banks Age: 29 yrs Sex: Female : 1990 Arrival Date: 01/12/2020 Time: 18:36 Bed 25 Private MD: Diagnosis: Sciatica, left side Presentation: 01/11 18:54 Chief complaint: Patient states: "My left leg, it's hurting really bad and my lower ss back." Pt reports this pain has been ongoing for 3 months, but now it's worse and continuous. Coronavirus screen: At this time, the client does not indicate any symptoms associated with coronavirus-19. Ebola Screen: Patient denies exposure to infectious person. Patient denies travel to an Ebola-affected area in the 21 days before illness onset. Initial Sepsis Screen: Does the patient meet any 2 criteria? No. Patient's initial sepsis screen is negative. Does the patient have a suspected source of infection? No. Patient's initial sepsis screen is negative. Risk Assessment: Do you want to hurt yourself or someone else? Patient reports no desire to harm self or others. Onset of symptoms was October 2019. 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 - Social history:: Smoking status: Patient denies any tobacco usage or history of. Screenin:20 Abuse screen: Denies threats or abuse. Denies injuries from another. Nutritional rr5 screening: No deficits noted. Tuberculosis screening: No symptoms or risk factors identified. Fall Risk None identified. Total Duggan Fall Scale indicates No Risk (0-24 pts). Assessment: 19:20 General: Appears in no apparent distress. uncomfortable, Behavior is calm, cooperative, rr5 appropriate for age. Pain: Complains of pain in left low back Pain radiates to left leg Pain currently is 4 out of 10 on a pain scale. Quality of pain is described as aching, Pain began gradually, Is intermittent. 19:20 Neuro: Level of Consciousness is awake, alert, obeys commands, Oriented to person, rr5 place, time, situation. Cardiovascular: Capillary refill < 3 seconds Patient's skin is warm and dry. Respiratory: Airway is patent Respiratory effort is even, unlabored, Respiratory pattern is regular, symmetrical. GI: No signs and/or symptoms were reported involving the gastrointestinal system. : No signs and/or symptoms were reported regarding the genitourinary system. EENT: No signs and/or symptoms were reported regarding the EENT system. Derm: Skin is intact, is healthy with good turgor, Skin temperature is warm. Musculoskeletal: Capillary refill < 3 seconds, Reports pain in left low back Pain is 4 out of 10 on a pain scale. 20:40 Reassessment: Patient appears in no apparent distress at this time. Patient is alert, rr5 oriented x 3, equal unlabored respirations, skin warm/dry/pink. awaiting for ultrasound procedure, follow up made in xray department, staff is on the way. 21:30 Reassessment: Patient appears in no apparent distress at this time. Patient is alert, rr5 oriented x 3, equal unlabored respirations, skin warm/dry/pink. back from ultrasound. 22:26 Reassessment: Patient appears in no apparent distress at this time. Patient is alert, rr5 oriented x 3, equal unlabored respirations, skin warm/dry/pink. discharge instruction given and explained without complaints made Patient states symptoms have improved. Vital Signs: 18:54 Pulse 60; Resp 16; Temp 98.8(O); Pulse Ox 99% ; Weight 113.4 kg; Height 5 ft. 3 in. (160.02 cm); Pain 6/10; 19:25 BP 145 / 86; Pulse 60; Resp 16; Pulse Ox 99% ; rr5 20:30 BP 161 / 89; Pulse 68; Resp 19; Pulse Ox 100% ; rr5 21:18 BP 155 / 70; Pulse 61; Resp 17; Pulse Ox 98% ; rr5 22:26 BP 143 / 86; Pulse 60; Resp 16; Pulse Ox 99% ; Pain 3/10; rr5 18:54 Body Mass Index 44.29 (113.40 kg, 160.02 cm) ED Course: 18:36 Patient [facility] in ED. [facility] 18:56 Triage completed. ss 18:56 Arm band placed on right wrist. ss 19:10 Yash Grimaldo PA is PHCP. cp 19:10 Avis Lemus MD is Attending Physician. cp 19:16 Marko Vogel, RN is Primary Nurse. rr5 19:20 Patient has correct armband on for positive identification. Bed in low position. Call rr5 light in reach. Pulse ox on. NIBP on. 19:54 Eric Vanessa MD is Attending Physician. cp 21:47 US Extremity Venous Unilateral Ltd In Process Unspecified. EDMS 22:27 No provider procedures requiring assistance completed. Patient did not have IV access rr5 during this emergency room visit. Administered Medications: 20:39 Drug: TORadol 30 mg Route: IM; Site: right gluteus; rr5 21:40 Follow up: Response: No adverse reaction rr5 Outcome: 22:17 Discharge ordered by MD. cp 22:27 Discharged to home ambulatory. rr5 22:27 Condition: stable 22:27 Discharge instructions given to patient, Instructed on discharge instructions, follow up and referral plans. medication usage, Demonstrated understanding of instructions, follow-up care, medications, Prescriptions given X 3. 22:37 Patient left the ED. rr5 Signatures: Dispatcher [employer] EDPA Mechelle Matias RN RN Yash Grimaldo PA PA cp Marko Vogel, RN RN rr5 Sp Erickson fj1
[2020-01-12 22:59] VITALS: TEMP 98.8
[2020-01-12 23:15] VITALS: BP 143/86; O2SAT 99
--- NOTE | 2020-01-13 06:58 | RAD REPORT ---
EXAM DESCRIPTION: US - Extremity Venous Uni Ltd - 01/12/2020 9:47 pm CLINICAL HISTORY: PAIN Preliminary findings provided at the time of the study. COMPARISON: None. TECHNIQUE: Real-time sonographic evaluation of the left lower extremity deep venous system was perfo rmed. FINDINGS: Normal compressibility, flow augmentation, phasic flow and spontaneous flow are identified in the left lower extremity common femoral, superficial femoral, popliteal and posterior tibial vein s. No intraluminal filling defects seen. IMPRESSION: No DVT in the left lower extremity.
== END 2020-01-12 22:37 | disposition home or self-care (01) ==
LOC: ER 18:30
DX: M54.32 Sciatica, left side (principal); I10 Essential (primary) hypertension
CPT/HCPCS: 81003; 81025; 93971; 96372; 99284

== ENCOUNTER → 2023-06-07 | Emergency (ER) | payer SELFPAY ==
--- OUTSIDE RECORDS SUMMARY | 2023-06-07 07:53 | XMS REPORT | Continuity of Care Document ---
Author Name Unknown Address [address] [place] [address] [facility] thconnect Address [address] [place] [address] Care Team Providers Care Carousel Attendant Name Role Phone Pcp, Patient Does Not Have A Primary Care Physic liss Doctor Unassigned, [place] Attending Clinician U navailable Test, Gal Pedi [facility] Attending Clinician Unavaildomenica Lee MD, Moisés Kelley Attending Clinician Grzegorz Lentz DO Attending Clinician [phone] GRZEGORZ LENTZ Attending Clinician Unavailable Payers Payer Name Policy Type Policy Number Effective Date Expirati on Date Source Problems Condition Name Condition Details Condition Category Status Onset Date Resolution Date Last Treatment Date Treating Clinician Comments Source 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 02/17/2015 colpo done [facility] Morbid obesity Morbid obesity Disease Active 01-06 00:00: 00 [facility] Allergies, Adverse Reactions, Alerts Allergy Name Allergy Type Status Severity Reaction(s) Onset Date Inactive Date Treating Clinician Comments Source Azithrom ycin Propensi ty to adverse reaction s Active Anaphylaxis 09-18 00:00: 00 [facility] AZITHROM YCIN DRUG INGREDI Active Anaphylaxis 09-18 00:00: 00 [facility] Social History Social Habit Start Date Stop Date Quantity Comments Source Exposure to SARS-CoV-2 (event) Not sure [facility] History SDOH Alcohol Frequency [facility] History SDOH Alcohol Std Drinks [facility] History SDOH Alcohol Binge [facility] Alcohol intake 2015-02-17 00:00:00 2015-02-17 00:00:00 0 /d [facility] Alcohol Comment 2015-01-06 00:00:00 2015-01-06 00:00:00 social [facility] Tobacco use and exposure 2011-08-31 00:00:00 2011-08-31 00:00:00 Never used [facility] Sex Assigned At 1990 00:00:00 1990 00:00:00 [facility] Smoking Status Start Date Stop Date Source Never smoker [facility] Medications Ordered Medication Name Filled Medication Name Start Date Stop Date Current Medication? Ordering Clinician Indication Dosage Frequency Signature (SIG) Comments Components Source Condoms Latex Lubricated (KIMONO TEXTURED CONDOMS) Anu 01-06 00:00: 00 Yes [id number] Use as directed [facility] Condoms Latex Lubricated (KIMONO TEXTURED CONDOMS) Anu 01-06 00:00: 00 Yes [id number] Use as directed [facility] Condoms Latex Lubricated (KIMONO TEXTURED CONDOMS) Anu 01-06 00:00: 00 Yes [id number] Use as directed [facility] Condoms Latex Lubricated (KIMONO TEXTURED CONDOMS) Anu 01-06 00:00: 00 Yes [id number] Use as directed [facility] Vital Signs Vital Name Observation Time Observation Value Comments S ource Systolic blood pressure 2020-03-24 14:13:00 161 mm[Hg] [facility] Diastolic blood pressure 2020-03-24 14:13:00 121 mm[Hg] [facility] Heart rate 2020-03-24 14:13:00 80 /min [facility] Body temperature 2020-03-24 14:13:00 36.17 Salma [facility] Respiratory rate 2020-03-24 14:13:00 14 /min [facility] Body height 2020-03-24 14:13:00 160 cm [facility] Body weight 2020-03-24 14:13:00 108.863 kg [facility] BMI 2020-03-24 14:13:00 42.51 kg/m2 [facility] Oxygen saturation in Arterial blood by Pulse oximetry 2020-03-24 14:13:00 98 /min [facility] Procedures Procedure Date / Time Performed Performing Clinician Source AUTHORIZATION FOR RELEASE OF PHI 2021-10-15 05:01:00 Doctor Unassigned, [facility] NOTICE OF PRIVACY PRACTICES 2020-03-24 14:06:41 Doctor Unassigned, [facility] Encounters Start Date/Time End Date/Time Encounter Type Admission Type Attending Clinicians Care Facility Care Department Encounter ID Source 2021-10-15 00:00:00 2021-10-15 00:00:00 Orders Only Doctor Unassigned, Churchill [facility] [id number] [facility] 2021-02-08 17:29:12 2021-02-08 17:44:12 [facility] [id number] [facility] 2020-03-24 09:15:00 2020-03-24 10:07:00 Emergency Grzegorz Lentz [facility] [id number] [facility] 2020-03-24 09:15:00 2020-03-24 09:15:00 Emergency X GRZEGORZ LENTZ [facility] ERT [id number] [facility] 2020-01-16 00:00:00 2020-01-16 00:00:00 Outpatient [facility] PDPFE[id number]
[2023-06-07 09:02] LABS: SARS-CoV-2 Antigen Rapid Res Positive (Negative)
--- NOTE | 2023-06-07 09:37 | ER ---
Nurse's Notes [facility] Name: Anna Banks Age: 32 yrs Sex: Female : 1990 Arrival Date: 06/07/2023 Time: 07:50 Bed 12 Private MD: Diagnosis: SARS-associated coronavirus as the cause of diseases classified elsewhere Presentation: 06/07 08:11 Chief complaint: Patient states: throat burning, body aches, left side hurts, chills, iw no fever, symptoms started , no cough. Coronavirus screen: Client presents with at least one sign or symptom that may indicate coronavirus-19. Ebola Screen: Patient negative for fever greater than or equal to 101.5 degrees Fahrenheit, and additional compatible Ebola Virus Disease symptoms Patient denies exposure to infectious person. Patient denies travel to an Ebola-affected area in the 21 days before illness onset. No symptoms or risks identified at this time. Initial Sepsis Screen: Does the patient meet any 2 criteria? No. Patient's initial sepsis screen is negative. Does the patient have a suspected source of infection? No. Patient's initial sepsis screen is negative. Risk Assessment: Do you want to hurt yourself or someone else? Patient reports no desire to harm self or others. Onset of symptoms was June 05, 2023. 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 - Social history:: Smoking status: Patient reports the use of cigarette tobacco products, denies chronic smoking, but will smoke occasionally. - Family history:: not pertinent. - Hospitalizations: : No recent hospitalization is reported. Vital Signs: 08:10 BP 141 / 105; Pulse 88; Resp 19; Temp 98.5; Pulse Ox 99% ; Weight 103.42 kg; Height 5 iw ft. 4 in. ; 08:10 Body Mass Index 39.14 (103.42 kg, 162.56 cm) iw ED Course: 07:52 Patient arrived in ED. mr 07:54 Sergio Navarro MD is Attending Physician. rn 08:13 Triage completed. iw 08:27 Strep Sent. ds4 08:27 SARS RAPID Sent. ds4 08:27 Flu Sent. ds4 09:15 Kaelyn Cid, ANURADHA is Primary Nurse. iw 09:36 Sergio Navarro MD is Referral Physician. rn 09:36 Referral Physician role handed off by Sergio Navarro MD rn Administered Medications: No medications were administered Outcome: 09:36 Discharge ordered by MD. rn 09:47 Patient left the ED. iw Signatures: Marisol Tobias, Reg Reg mr Kaelyn Cid RN RN iw Sergio Navarro MD MD rn Swanson, Donovan ds4 Corrections: (The following items were deleted from the chart) 08:10 08:10 PMHx: tubal ligation; iw iw 08:11 08:10 Pulse 88bpm; Resp 19bpm; Pulse Ox 99%; Temp 98.5F; 103.42 kg; Height 5 ft. 4 in.; iw BMI: 39.1; iw
--- NOTE | 2023-06-07 09:37 | EDPHYS ---
Physician Documentation [facility] Name: Anna Banks Age: 32 yrs Sex: Female : 1990 Arrival Date: 06/07/2023 Time: 07:50 Bed 12 Private MD: ED Physician Sergio Navarro HPI: 06/07 08:50 This 32 yrs old Female presents to ER via Ambulatory with complaints of Flu rn Symptoms. 08:50 The patient presents with sore throat. The patient describes throat pain as raw, rn scratchy. Onset: The symptoms/episode began/occurred 2 day(s) ago. Severity of symptoms: At their worst the symptoms were mild, in the emergency department the symptoms are unchanged. Modifying factors: The symptoms are alleviated by nothing, the symptoms are aggravated by nothing. Associated signs and symptoms: Pertinent positives: chills, cough, fever, flu-like symptoms, Sore throat Pertinent negatives chest pain, shortness of breath. The patient has not experienced similar symptoms in the past. Patient reports sick for 2 days, sore throat, chills, subjective fever. Patient reports 2 kids sick at home, 1 was tested positive for flu, 1 was tested positive for strep. No shortness of breath or chest pain. No abdominal pain. No vomiting or diarrhea.. 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 - Social history:: Smoking status: Patient reports the use of cigarette tobacco products, denies chronic smoking, but will smoke occasionally. - Family history:: not pertinent. - Hospitalizations: : No recent hospitalization is reported. ROS: 08:50 Constitutional: + fever and chills Neck: Negative for injury, pain, and swelling, decision unit rn: Negative for chest pain, palpitations, and edema, Respiratory: + cough, negative for sob Abdomen/GI: Negative for abdominal pain, nausea, vomiting, diarrhea, and constipation, MS/Extremity: Negative for injury and deformity, Skin: Negative for injury, rash, and discoloration, Neuro: Negative for numbness, tingling, and seizure Exam: 08:50 Constitutional: This is a well developed, well nourished patient who is awake, alert, rn and in no acute distress. Head/Face: Normocephalic, atraumatic. ENT: MMM, mild pharyngeal erythema, no stridor Neck: Trachea midline, no masses palpated, and no cervical lymphadenopathy. Supple, full range of motion without nuchal rigidity, or vertebral point tenderness. No Meningismus. Cardiovascular: Regular rate and rhythm. No pulse deficits. Respiratory: No increased work of breathing, no retractions or nasal flaring. Neuro: Awake and alert, GCS 15 Vital Signs: 08:10 BP 141 / 105; Pulse 88; Resp 19; Temp 98.5; Pulse Ox 99% ; Weight 103.42 kg; Height 5 iw ft. 4 in. ; 08:10 Body Mass Index 39.14 (103.42 kg, 162.56 cm) iw MDM: 07:54 Patient medically screened. rn 09:35 Differential diagnosis: group A strep tonsillitis, influenza, laryngitis, pharyngitis, rn viral syndrome COVID. Data reviewed: vital signs, nurses notes, lab test result(s), and as a result, I will discharge patient. Counseling: I had a detailed discussion with the patient and/or guardian regarding the historical points, exam findings, and any diagnostic results supporting the discharge/admit diagnosis, lab results, the need for outpatient follow up, to return to the emergency department if symptoms worsen or persist or if there are any questions or concerns that arise at home. Special discussion: I discussed with the patient/guardian in detail that at this point there is no indication for admission to the hospital. It is understood, however, that if the symptoms persist or worsen the patient needs to return immediately for re-evaluation. ED course: Patient COVID-positive, negative strep, negative flu, will DC home with [id number] medication and return precautions. I have personally reviewed all of the results, including but not limited to blood tests deemed necessary to safely discharge this patient at this time. All results given to and printed out for patient. I personally went over all the results with the patient and answered all questions. Patient will follow-up with PCP and or specialist as discussed. Return precautions given and understood.. 06/07 08:15 Order name: Flu; Complete Time: 09:28 rn 06/07 08:15 Order name: SARS RAPID; Complete Time: 09:28 rn 06/07 08:15 Order name: Strep rn 06/07 08:46 Order name: Throat Culture EDMS Administered Medications: No medications were administered Disposition Summary: 06/07/23 09:36 Discharge Ordered Notes: Location: Home rn Problem: new rn Symptoms: have improved rn Condition: Stable rn Diagnosis - SARS-associated coronavirus as the cause of diseases classified elsewhere rn Followup: rn - With: Private Physician - When: As needed - Reason: Recheck today's complaints, Re-evaluation by your physician Discharge Instructions: - Discharge Summary Sheet rn - COVID-19 rn - How to Protect Yourself and Others - [facility] (08/06/2021) rn - 10 Things You Can Do to Manage Your COVID-19 Symptoms at Home - [facility] (12/25/2020) rn - Viral Illness, Adult rn Forms: - Work release form iw - Medication Reconciliation Form rn - Thank You Letter rn - 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
[2023-06-07 12:43] VITALS: BP 141/105; TEMP 98.5; O2SAT 99
== END ==
LOC: ER 07:50
DX: U07.1 COVID-19 (principal)
CPT/HCPCS: 36415; 87070; 87081; 87804; 87811; 99282